=== PATIENT | female | born 1970 | race Asian ===

== ENCOUNTER 2021-11-10 06:53 | Emergency (ER) | payer BC ==
[~2021-11-10] VITALS: Ht 160 cm; Wt 54.4 kg
[2021-11-10 07:15] VITALS: BP_SYST 171
--- NOTE | 2021-11-10 07:28 | NUR ---
Patient to ER bed 07 for evaluation. Side rails up. Report given to ANIL Tovar.
--- NOTE | 2021-11-10 07:30 | NUR ---
Pt coming from home ambulatory with steady gait. Pt c/o feeling pain on left side of body that started 2 weeks ago. No trauma. Pain started abruptly and rates pain 8/10 constant. 0 on NIHSS scale. Cranial nerves intact. Pupils PERRLA. Equal strength in all extremities. Pt is A&Ox4. Skin intact. NKA. Has hx of DM and HTN. No chest pain and no sob. Denies n/v. Connected pt to cardiac montior and VSS. Bed in lowest position.
--- NOTE | 2021-11-10 07:40 | NUR ---
SAMMIE Chavez at bedside examining patient.
--- NOTE | 2021-11-10 07:50 | NUR ---
EKG performed at by La MA. Physician given copy of EKG for review.
--- NOTE | 2021-11-10 07:56 | NUR ---
Accucheck done and results were 136. Dr. Victor made aware.
--- NOTE | 2021-11-10 07:57 | NUR ---
valve technician at bedside.
[2021-11-10] MEDS ORDERED: KETOROLAC TROMETHAMINE 60 MG/2 ML VIAL IM ONE (08:00)
[2021-11-10 08:02] LABS: BASOPHILS % (AUTO) 0.3 % (0.0-2.0); EOSINOPHILS # (AUTO) 0.1 K/uL (0.0-0.4); HEMATOCRIT 39.8 % (36-48); HEMOGLOBIN 13.3 g/dL (12.0-16.0); LYMPHOCYTES # (AUTO) 1.9 K/uL (1.0-5.5); LYMPHOCYTES % (AUTO) 22.1 % (20.5-51.5); MEAN CORPUSCULAR HEMOGLOBIN 29 pg (27-31); MEAN CORPUSCULAR HGB CONC 33 % (32-36); MEAN CORPUSCULAR VOLUME 86 fL (79.0-98.0); MONOCYTES # (AUTO) 0.6 K/uL (0.0-1.0); MONOCYTES % (AUTO) 6.8 % (1.7-9.3); NEUTROPHILS # (AUTO) 5.9 K/uL (1.8-7.7); NEUTROPHILS % (AUTO) 69.8 % (40.0-70.0); PLATELET COUNT (AUTO) 283 K/uL (130-430); RED BLOOD CELL COUNT(AUTO) 4.62 MIL/uL (4.2-6.2); RED CELL DISTRIBUTION WIDTH 13.6 % (9.0-15.0); WHITE BLOOD COUNT (AUTO) 8.5 K/uL (4.8-10.8)
--- NOTE | 2021-11-10 08:07 | NUR ---
PT REFUSES TORADOL IM, STATES SHE SCARED OF INJECTIONS. DR CLARK INFORMED.
[2021-11-10 08:19] LABS: ANION GAP 6 (5-15); CALCIUM 9.6 mg/dL (8.4-11.0); CHLORIDE 104 mmol/L (98-107); CREATININE 0.65 mg/dL (0.55-1.30); GLUCOSE 150 mg/dL (70-99); POTASSIUM 4.3 mmol/L (3.5-5.1); SODIUM SERUM 141 mmol/L (136-145); UREA NITROGEN, BLOOD 8 mg/dL (8-21)
[2021-11-10 08:20] LABS: GFR AFRICAN AMERICAN 124 mL/min (>90)
[2021-11-10] MEDS ORDERED: IBUP-1969 PO (08:20)
[2021-11-10] MEDS ORDERED: NEU300 PO (08:20)
[2021-11-10 08:28] LABS: ALANINE AMINOTRANSFERASE 40 U/L (12-78); ALBUMIN 3.8 g/dL (3.4-4.8); ASPARTATE AMINOTRANSFERASE 24 U/L (10-37); TOTAL BILIRUBIN 0.2 mg/dL (0.0-1.0)
[2021-11-10] MEDS ORDERED: IBUPROFEN 600 MG TABLET PO ONE (08:30)
[2021-11-10] MEDS ORDERED: GABAPENTIN 100 MG CAPSULE PO ONE (08:30)
--- NOTE | 2021-11-10 08:59 | NUR ---
Patient given written and verbal discharge instructions and verbalizes understanding. ER MD discussed with patient the results and treatment provided. Patient in stable condition. ID arm band removed. Rx of Gabapenting and Motrin given. Patient educated on pain management and to follow up with PMD. Pain Scale 0/10. Opportunity for questions provided and answered. Medication side effect fact sheet provided.
[2021-11-10 09:00] VITALS: BP_SYST 140
== END 2021-11-10 09:00 | disposition home or self-care (01) ==
LOC: SED 06:53
DX: G62.9 Polyneuropathy, unspecified (principal); M79.602 Pain in left arm; R20.2 Paresthesia of skin; M54.50 Low back pain, unspecified; E11.9 Type 2 diabetes mellitus without complications; I10 Essential (primary) hypertension; Z79.899 Other long term (current) drug therapy
CPT/HCPCS: 36415; 71045; 72040-TC; 72100-TC; 80053; 82962; 84484; 85025; 93005; 99285; J1885